=== PATIENT | female | born 1950 | race Caucasian/White ===

== ENCOUNTER 2018-05-14 09:25 | Outpatient (CLI) | payer MEDICARE, OTHER, SELFPAY ==
[2018-05-14 10:37] LABS: HGB 13.9 g/dL (12.0-15.5)
[2018-05-14 12:09] LABS: Ferritin 114 ng/mL (8-388); Potassium 3.5 mmol/L (3.5-5.1)
== END 2018-05-14 09:45 ==
PROVIDERS: PCP Family Medicine; Visit Provider Family Medicine
DX: E87.6 Hypokalemia (principal); E83.10 Disorder of iron metabolism, unspecified; E83.119 Hemochromatosis, unspecified
CPT/HCPCS: 36415; 82728; 84132; 85014; 85018

== ENCOUNTER 2018-07-02 11:09 | Outpatient (CLI) | payer MEDICARE, OTHER, SELFPAY ==
[2018-07-02 13:19] LABS: HCT 40.5 % (36.0-46.0); Mean Corp. HGB Concentration 34.6 g/dL (32.0-36.0); Mean Corpuscular Hemoglobin 33.8 pg (27.0-33.0); Mean Corpuscular Volume 97.8 fL (80-95); Mean Platelet Volume 10.6 fL (8.0-11.0); Platelet Count 226 x1000/uL (130-400); RBC 4.14 m/cumm (4.00-5.20); RBC Distribution Width 12.7 % (11.7-14.6)
[2018-07-02 13:37] LABS: ALT 26 U/L (12-78); AST 16 U/L (15-37); Alkaline Phosphatase 50 U/L (46-116); Anion Gap 6.4 mmol/L (3-11); BUN 14 mg/dL (7-18); Bilirubin, Total 0.4 mg/dL (0.2-1.0); CO2 31.6 mmol/L (21.0-32.0); CREATININE 0.63 mg/dL (0.55-1.02); Calcium 9.1 mg/dL (8.5-10.1); Chloride 101 mmol/L (98-107); Glucose 68 mg/dL (70-100); Potassium 3.8 mmol/L (3.5-5.1); Sodium 139 mmol/L (136-145); TSH (W/Ref FT4) 1.18 uIU/mL (0.358-3.74); Total Protein 7.4 g/dL (6.4-8.2)
== END 2018-07-02 11:29 ==
PROVIDERS: PCP Family Medicine; Visit Provider Family Medicine
DX: I10 Essential (primary) hypertension (principal); N95.0 Postmenopausal bleeding; R53.83 Other fatigue; Z01.818 Encounter for other preprocedural examination
CPT/HCPCS: 36415; 80053; 85027; 83735; 84443

== ENCOUNTER 2018-07-23 00:41 | Outpatient (CLI) | payer MEDICARE, OTHER, SELFPAY ==
--- NOTE | 2018-07-23 10:30 | DI.MAMMO_ITS ---
SYMPTOMS/DIAGNOSIS: SCREENING, Z12.31 MAMMOGRAM: Mammograms were interpreted according to the usual protocol including computer analysis with CAD system, tomosynthesis and C view imaging. Comparison is made with exams from 2013 through 2018. The breasts are composed of heterogeneously dense fibroglandular tissue, breast density Category C. No suspicious masses or suspicious microcalcifications are seen. There has been no significant change. IMPRESSION: Category I C, negative mammogram. Yearly screening mammography is recommended. [facility] ASSESSMENT OF FINDINGS: Negative. Category 1. Patient will receive a letter notifying them of these results. Bi-RADS category C. The breasts are heterogeneously dense, which may obscure small masses.
== END 2018-07-23 01:01 ==
PROVIDERS: PCP Family Medicine; Visit Provider Family Medicine
DX: Z12.31 Encounter for screening mammogram for malignant neoplasm of breast (principal)
CPT/HCPCS: 77063; 77067

== ENCOUNTER 2018-09-12 08:23 | Outpatient (CLI) | payer MEDICARE, OTHER, SELFPAY ==
[2018-09-12] MEDS: Gadoterate meglumine 20 ML VIAL 11 ML IVP (10:14)
--- NOTE | 2018-09-12 10:36 | DI.MRI_ITS ---
SYMPTOMS/DIAGNOSIS: THORACIC BACK PAIN, M54.6, LOWER EXTREMITY PAIN, M79.606, RADIATING PAIN, H/O THORACIC DISCECTOMY MRI OF THE THORACIC SPINE: Pre and post contrast MRI of the thoracic spine was performed. Comparison examinations 01/10/18 and 01/19/18. There is normal signal in the spinal cord. There is a small right paracentral disc herniation at T 7 - 8 which is unchanged. No significant central spinal canal stenosis. No neural foraminal stenosis is seen. The disc herniation at T 11 - 12 is no longer visualized. There is a very small left paracentral disc protrusion at T 11 - 12. The remaining disc levels show no evidence of central spinal canal or neural foraminal stenosis. The marrow signal is within normal limits. IMPRESSION: 1. Resolution of the large left sided extruded disc at T 11 - 12. There is a very small residual left paraspinal disc herniation at T 11 - 12 but no nerve root compression or central spinal canal stenosis results. 2. Stable small right paracentral disc herniation at T 7 - 8.
== END 2018-09-12 08:43 ==
PROVIDERS: PCP Family Medicine; Visit Provider Neurological Surgery
DX: M54.6 Pain in thoracic spine (principal); M51.24 Other intervertebral disc displacement, thoracic region; Z98.890 Other specified postprocedural states
CPT/HCPCS: 72157

== ENCOUNTER 2018-10-10 09:03 | Outpatient (CLI) | payer MEDICARE, OTHER, SELFPAY ==
[2018-10-10 12:20] LABS: Ferritin 109 ng/mL (8-388); Potassium 3.8 mmol/L (3.5-5.1)
== END 2018-10-10 09:23 ==
PROVIDERS: PCP Family Medicine; Visit Provider Family Medicine
DX: E83.10 Disorder of iron metabolism, unspecified (principal); E83.119 Hemochromatosis, unspecified; E87.6 Hypokalemia
CPT/HCPCS: 36415; 82728; 84132

== ENCOUNTER 2018-11-02 08:09 | Outpatient (CLI) | payer MEDICARE, OTHER, SELFPAY ==
[2018-11-02 10:22] LABS: Cholesterol 258 mg/dL (50-200); HDL Cholesterol 60 mg/dL (40-60); LDL CHOLESTEROL 181 mg/dL (<100); Triglyceride 114 mg/dL (30-150)
== END 2018-11-02 08:29 ==
PROVIDERS: PCP Family Medicine; Visit Provider Internal Medicine Cardiovascular Disease
DX: I10 Essential (primary) hypertension (principal); I25.10 Atherosclerotic heart disease of native coronary artery without angina pectoris; M54.5 Low back pain; M54.6 Pain in thoracic spine; M47.814 Spondylosis without myelopathy or radiculopathy, thoracic region; M47.816 Spondylosis without myelopathy or radiculopathy, lumbar region; M53.3 Sacrococcygeal disorders, not elsewhere classified
CPT/HCPCS: 36415; 80061; 83721; 72072; 72100

== ENCOUNTER 2018-11-02 09:38 | Outpatient (CLI) | payer MEDICARE, OTHER, SELFPAY ==
--- NOTE | 2018-11-02 09:35 | DI.RAD_ITS ---
SYMPTOM/DIAGNOSIS: LOW BACK PAIN M54.5 M54.6, THORACID PAIN M54.5, M54.6 THORACIC SPINE: 11/02 Three views were obtained. There are minimal end plate hypertrophic degenerative changes throughout the thoracic region. No compression fracture. No other significant findings. LUMBOSACRAL SPINE: 11/02 Three views were obtained. The intervertebral disc spaces are fairly well maintained. There are moderate hypertrophic changes of the facet joints and vertebral end plates with prominent end plate osteophytes anteriorly particularly at L2-3 and L4-5. No compression fracture seen. No other specific bony abnormality. Slight right convex lumbar scoliosis noted. CONCLUSION: Moderate DJD lumbar spine. Mild DJD S-I joints bilaterally noted as well.
== END 2018-11-02 09:58 ==
PROVIDERS: PCP Family Medicine; Visit Provider Family Medicine
DX: M54.5 Low back pain (principal); M54.6 Pain in thoracic spine; M47.814 Spondylosis without myelopathy or radiculopathy, thoracic region; M47.816 Spondylosis without myelopathy or radiculopathy, lumbar region; M53.3 Sacrococcygeal disorders, not elsewhere classified
CPT/HCPCS: 72072; 72100

== ENCOUNTER → 2018-11-09 13:46 | Outpatient (BNVA) | payer MEDICARE, OTHER, SELFPAY | PROVIDERS: PCP Family Medicine; Visit Provider Internal Medicine Cardiovascular Disease | DX: I25.10 Atherosclerotic heart disease of native coronary artery without angina pectoris (principal); Z95.818 Presence of other cardiac implants and grafts; E78.5 Hyperlipidemia, unspecified; I10 Essential (primary) hypertension | CPT/HCPCS: 99213 ==

== ENCOUNTER 2019-01-21 09:49 | Outpatient (CLI) | payer MEDICARE, OTHER, SELFPAY ==
[2019-01-21 13:26] LABS: Ferritin 114 ng/mL (8-388); Potassium 4.1 mmol/L (3.5-5.1)
== END 2019-01-21 10:09 ==
PROVIDERS: PCP Family Medicine; Visit Provider Family Medicine
DX: E87.6 Hypokalemia (principal); E83.10 Disorder of iron metabolism, unspecified; E83.119 Hemochromatosis, unspecified
CPT/HCPCS: 36415; 82728; 84132

== ENCOUNTER 2019-05-08 07:19 | Outpatient (CLI) | payer MEDICARE, OTHER, SELFPAY ==
[2019-05-08 09:45] LABS: Anion Gap 9.4 mmol/L (3-11); BUN 17 mg/dL (7-18); CO2 29.6 mmol/L (21.0-32.0); CREATININE 0.83 mg/dL (0.55-1.02); Calcium 9.4 mg/dL (8.5-10.1); Calculated LDL 97 mg/dL; Chloride 99 mmol/L (98-107); Cholesterol 177 mg/dL (50-200); Glucose 83 mg/dL (70-100); HDL Cholesterol 62 mg/dL (40-60); Sodium 138 mmol/L (136-145); Triglyceride 93 mg/dL (30-150)
[2019-05-08 09:59] LABS: Ferritin 101 ng/mL (8-388)
== END 2019-05-08 07:39 ==
PROVIDERS: PCP Family Medicine; Visit Provider Internal Medicine Cardiovascular Disease
DX: E78.5 Hyperlipidemia, unspecified (principal); E83.10 Disorder of iron metabolism, unspecified; E87.6 Hypokalemia; E83.119 Hemochromatosis, unspecified
CPT/HCPCS: 36415; 80048; 80061; 82728

== ENCOUNTER → 2019-05-22 09:40 | Outpatient (BNVA) | payer MEDICARE, OTHER, SELFPAY | PROVIDERS: PCP Family Medicine; Referring Provider Family Medicine; Visit Provider Internal Medicine Cardiovascular Disease | DX: I25.10 Atherosclerotic heart disease of native coronary artery without angina pectoris (principal); E78.5 Hyperlipidemia, unspecified; I10 Essential (primary) hypertension; I34.0 Nonrheumatic mitral (valve) insufficiency | CPT/HCPCS: 99204; 99215 ==

== ENCOUNTER 2019-07-09 09:51 | Outpatient (CLI) | payer MEDICARE, OTHER, SELFPAY ==
[2019-07-09 13:07] LABS: HCT 39.6 % (36.0-46.0); HGB 13.6 g/dL (12.0-15.5)
[2019-07-09 13:33] LABS: Ferritin 103 ng/mL (8-252)
[2019-07-09 13:34] LABS: Hemoglobin A1C 5.5 % (3.8-5.6)
[2019-07-09 13:49] LABS: Potassium 3.8 mmol/L (3.5-5.1); TSH (W/Ref FT4) 1.65 uIU/mL (0.36-3.74); Vitamin B12 467 pg/mL (193-986)
== END 2019-07-09 10:11 ==
PROVIDERS: PCP Family Medicine; Visit Provider Family Medicine
DX: E11.9 Type 2 diabetes mellitus without complications (principal); I10 Essential (primary) hypertension; D64.9 Anemia, unspecified; G62.9 Polyneuropathy, unspecified; E87.6 Hypokalemia; E83.10 Disorder of iron metabolism, unspecified; E83.119 Hemochromatosis, unspecified
CPT/HCPCS: 36415; 82607; 82728; 83036; 84132; 84443; 85014; 85018

== ENCOUNTER 2019-08-29 01:43 | Outpatient (CLI) | payer MEDICARE, OTHER, SELFPAY ==
--- NOTE | 2019-08-29 09:45 | DI.MAMMO_ITS ---
EXAM: MG MAMMO SCREENING CLINICAL HISTORY: screening, Z12.39 TECHNIQUE: Bilateral full field digital CC and MLO mammographic images were obtained with 3D tomosyn thesis and utilizing computer aided detection (CAD). COMPARISON: Available for comparison. FINDINGS: Masses/Architectural Distortion: None seen. Microcalcifications: No suspicious pleomorphic-type are seen. Skin Thickening/Nipple Retraction: None. IMPRESSION: 1. No significant interval change with no specific features of malignancy noted. 2. Unless there is more urgent need, screening mammography is recommended, as per [place] [employer] guidelines. ACR BI-RAD Category- 1 Negative Breast Density - Category C - Heterogeneously dense The mammogram demonstrates the patient's breast tissue is dense. Dense breast tissue is very common a nd is not abnormal but dense breast tissue can make it harder to find cancer on a mammogram. Also, de nse breast tissue may increase their breast cancer risk. This information about the result of the [facility] mogram report was provided to the patient to raise their awareness. Use this report when you speak wi th the patient about their risks for breast cancer, which includes their family history. At that time , you may recommend for more screening tests (Ultrasound or MRI) as they might be useful based on the ir risk. A negative radiographic report should not delay biopsy if a dominant or clinically suspicious mass is present. Up to ten percent of cancers are not identified on mammography. A negative report may reinforce clinical impression. Adenosis and dense breasts may obscure an underlying neoplasm. False positive reports average 6 to 10%. Patient will receive a letter notifying them of these results.
== END 2019-08-29 02:03 ==
PROVIDERS: PCP Family Medicine; Visit Provider Family Medicine
DX: Z12.31 Encounter for screening mammogram for malignant neoplasm of breast (principal)
CPT/HCPCS: 77063; 77067

== ENCOUNTER 2019-11-14 03:54 | Outpatient (CLI) | payer MEDICARE, OTHER, SELFPAY ==
[2019-11-14 09:34] LABS: HCT 40.7 % (36.0-46.0); HGB 14.1 g/dL (12.0-15.5)
[2019-11-14 09:44] LABS: Calculated LDL 95 mg/dL (<100); Cholesterol 176 mg/dL (<200); HDL Cholesterol 66 mg/dL (40-60); Triglyceride 77 mg/dL (<150)
[2019-11-14 10:26] LABS: Ferritin 146 ng/mL (8-252); Potassium 3.8 mmol/L (3.5-5.1)
== END 2019-11-14 04:14 ==
PROVIDERS: PCP Family Medicine; Visit Provider Internal Medicine Cardiovascular Disease
DX: E78.5 Hyperlipidemia, unspecified (principal); E87.6 Hypokalemia; E83.19 Other disorders of iron metabolism
CPT/HCPCS: 36415; 80061; 82728; 84132; 85014; 85018

== ENCOUNTER → 2019-11-19 12:08 | Outpatient (BNVA) | payer MEDICARE, OTHER, SELFPAY | PROVIDERS: PCP Family Medicine; Referring Provider Family Medicine; Visit Provider Internal Medicine Cardiovascular Disease | DX: I25.10 Atherosclerotic heart disease of native coronary artery without angina pectoris (principal); I10 Essential (primary) hypertension; I34.0 Nonrheumatic mitral (valve) insufficiency; E78.5 Hyperlipidemia, unspecified | CPT/HCPCS: 99214; 99442 ==

== ENCOUNTER 2019-12-09 14:15 | Outpatient (CLI) | payer MEDICARE, OTHER, SELFPAY ==
--- NOTE | 2019-12-09 14:30 | DI.RAD_ITS ---
EXAM: XR KNEE LT 4V AP,LAT,JW,PAT CLINICAL HISTORY: left knee pain M25.562. TECHNIQUE: 2D digital imaging was performed. COMPARISON: No exams were available for comparison FINDINGS: BONES: No acute fracture is present. No bony destructive lesion is seen. JOINTS: The knee is normally aligned. A small joint effusion is seen. There is heavy chondrocalcinosi s of the femoral tibial joint space cartilage and menisci. Femoral tibial joint spaces are well main tained. There is minimal periarticular spurring. The patellar view is suboptimal. SOFT TISSUE: Normal. IMPRESSION: Severe chondrocalcinosis. DATA REPOSITORY: RADIATION DOSE DELIVERED:
== END 2019-12-09 14:35 ==
PROVIDERS: PCP Family Medicine; Visit Provider Family Medicine
DX: M25.562 Pain in left knee (principal); M25.462 Effusion, left knee; M11.262 Other chondrocalcinosis, left knee
CPT/HCPCS: 73564

== ENCOUNTER 2019-12-09 14:47 | Outpatient (CLI) | payer MEDICARE, OTHER, SELFPAY ==
[2019-12-09 15:40] LABS: Abs Immature Grans 0.02 k/cumm (0.0-0.09); Absolute Basophil Count 0.03 k/cumm (0.0-0.2); Absolute Eosinophil Count 0.09 k/cumm (0.0-0.7); Absolute Lymphocyte Count 2.22 k/cumm (1.2-3.4); Absolute Monocyte Count 1.26 k/cumm (0.11-0.7); Absolute Neutrophil Count 6.64 k/cumm (1.2-6.7); Basophils % 0.3; Eosinophils % 0.9; HGB 14.9 g/dL (12.0-15.5); Immature Grans % 0.2 %; Lymphocytes % 21.6; Mean Corp. HGB Concentration 34.7 g/dL (32.0-36.0); Mean Corpuscular Hemoglobin 34.1 pg (27.0-33.0); Mean Corpuscular Volume 98.4 fL (80-95); Mean Platelet Volume 10.2 fL (8.0-11.0); Monocytes % 12.3; Neutrophils % 64.7; Platelet Count 243 x1000/uL (130-400); RBC 4.37 m/cumm (4.00-5.20); White Blood Cell Count 10.26 k/cumm (4.4-10.8)
[2019-12-09 16:20] LABS: D-Dimer 276 ng/mlFEU (<500)
[2019-12-09 16:27] LABS: C-Reactive Protein 1.25 mg/dL (0.0-0.3)
== END 2019-12-09 15:07 ==
PROVIDERS: PCP Family Medicine; Visit Provider Nurse Practitioner Family
DX: M25.562 Pain in left knee (principal)
CPT/HCPCS: 36415; 73564; 85025; 85379; 86140

== ENCOUNTER 2020-04-08 02:18 | Outpatient (CLI) | payer MEDICARE, OTHER, SELFPAY ==
[2020-04-08 10:49] LABS: HCT 39.2 % (36.0-46.0); HGB 13.5 g/dL (11.2-15.7)
[2020-04-08 11:40] LABS: Ferritin 185 ng/mL (8-252); Potassium 3.7 mmol/L (3.5-5.1)
== END 2020-04-08 02:38 ==
PROVIDERS: PCP Family Medicine; Visit Provider Family Medicine
DX: E87.6 Hypokalemia (principal); E83.10 Disorder of iron metabolism, unspecified; E83.119 Hemochromatosis, unspecified
CPT/HCPCS: 36415; 82728; 84132; 85014; 85018

== ENCOUNTER 2020-07-21 03:52 | Outpatient (CLI) | payer MEDICARE, OTHER, SELFPAY ==
[2020-07-21 11:32] LABS: HCT 39.9 % (36.0-46.0); HGB 14.2 g/dL (11.2-15.7)
[2020-07-21 12:33] LABS: Ferritin 127 ng/mL (8-252); Potassium 3.9 mmol/L (3.5-5.1)
== END 2020-07-21 04:12 ==
PROVIDERS: PCP Family Medicine; Visit Provider Family Medicine
DX: E83.10 Disorder of iron metabolism, unspecified (principal)
CPT/HCPCS: 36415; 82728; 84132; 85014; 85018

== ENCOUNTER 2020-08-31 01:31 | Outpatient (CLI) | payer MEDICARE, OTHER, SELFPAY ==
--- NOTE | 2020-08-31 06:30 | DI.MAMMO_ITS ---
EXAM: MAMMO SCREENING CLINICAL HISTORY: screening,Z12.39 TECHNIQUE: Mammograms were interpreted according to the usual protocol including computer analysis w [employer] CAD system, tomosynthesis and C-view imaging. COMPARISON: 2010 through 2019 FINDINGS: The breasts are composed of heterogeneously dense fibroglandular densities, Breast Density category C . No suspicious masses or suspicious microcalcifications are seen. No skin thickening or abnormal axillary lymph nodes are seen. There has been no significant change from prior exams. IMPRESSION: BI-RADS Category 1, Negative mammogram. Yearly screening mammography is recommended. Breast Density Category C, heterogeneously Dense. The mammogram demonstrates the patient's breast tissue is dense. Dense breast tissue is very common a nd is not abnormal but dense breast tissue can make it harder to find cancer on a mammogram. Also, de nse breast tissue may increase breast cancer risk. This information about the result of the mammogram report was provided to the patient to raise their awareness. Use this report when you speak with the patient about their risks for breast cancer, which includes their family history. At that time, you may recommend additional screening tests (Ultrasound or MRI) as they might be useful based on their r isk. A negative radiographic report should not delay biopsy if a dominant or clinically suspicious mass is present. Up to ten percent of cancers are not identified on mammography. A negative report may reinforce clinical impression. Adenosis and dense breasts may obscure an underlying neoplasm. False positive reports average 6 to 10%.
== END 2020-08-31 01:51 ==
PROVIDERS: PCP Family Medicine; Visit Provider Family Medicine
DX: Z12.31 Encounter for screening mammogram for malignant neoplasm of breast (principal)
CPT/HCPCS: 77063; 77067

== ENCOUNTER 2020-09-28 01:47 | Outpatient (CLI) | payer MEDICARE, OTHER, SELFPAY ==
--- NOTE | 2020-09-28 07:30 | DI.US_ITS ---
EXAM: US BREAST LT COMPLETE CLINICAL HISTORY: INCONCLUSIVE MAMMO, R92.2, DENSE BREAST TISSUE TECHNIQUE: Ultrasound right breast performed using standard protocol. COMPARISON: MG MAMMO SCREENING from 08/31/2020 FINDINGS: No solid or cystic masses, hypoechoic foci, areas of abnormal shadowing, or areas of skin thickening. IMPRESSION: No sonographically suspicious finding. BI-RADS Category 1 - Negative DATA REPOSITORY:
--- NOTE | 2020-09-28 07:30 | DI.US_ITS ---
EXAM: US BREAST RT COMPLETE CLINICAL HISTORY: INCONCLUSIVE MAMMOGRAM, R92.2, DENSE BREAST TISSUE TECHNIQUE: Ultrasound right breast performed using standard protocol. COMPARISON: MG MAMMO SCREENING from 08/31/2020 FINDINGS: No solid or cystic masses, hypoechoic foci, areas of abnormal shadowing, or areas of skin thickening. IMPRESSION: No sonographically suspicious finding. BI-RADS Category 1 - Negative DATA REPOSITORY:
== END 2020-09-28 02:07 ==
PROVIDERS: PCP Family Medicine; Visit Provider Family Medicine
DX: R92.2 Inconclusive mammogram (principal); N64.89 Other specified disorders of breast
CPT/HCPCS: 76642

== ENCOUNTER 2020-11-10 01:27 | Outpatient (CLI) | payer MEDICARE, OTHER, SELFPAY ==
--- NOTE | 2020-11-10 07:15 | DI.US_ITS ---
APPROVED REPORT EXAM: Comprehensive 2D, Doppler, and color-flow Echocardiogram Patient Location: Out-Patient Trumpet Teacher: Valencia Holbrook RDCS (AE) Indications: Mitral Regurgitation, CAD Other Information Study Quality: Good Conclusion Left Ventricle : The left ventricle is normal size. The left ventricular systolic function is normal. The left ventricular ejection fraction is within the normal range. There is normal left ventricular wall thickness. There is normal LV segmental wall motion. The left ventricular diastolic function is normal. LVEF is 60-65%. Right Ventricle : The right ventricle is normal size. The right ventricular systolic function is norm al. The RVSP is 21.7mmHg. Atria : The left atrium size is normal. The right atrium size is normal. Mitral Valve : Mild mitral annular calcification. Mild mitral regurgitation. No evidence of mitral va lve stenosis. Great Vessels : The aortic root is normal in size. The ascending aorta is mildly dilated. Aortic arch is normal in caliber. IVC is normal in size and collapses >50% with inspiration. Wall motion Left Ventricle The left ventricle is normal size. The left ventricular systolic function is normal. The left ventric ular ejection fraction is within the normal range. There is normal left ventricular wall thickness. T here is normal LV segmental wall motion. The left ventricular diastolic function is normal. There is no ventricular septal defect visualized. LVEF is 60-65%. Right Ventricle The right ventricle is normal size. The right ventricular systolic function is normal. The RVSP is 21 .7mmHg. Atria The left atrium size is normal. The right atrium size is normal. The interatrial septum is intact wit h no evidence for an atrial septal defect. Aortic Valve The aortic valve is normal in structure. Aortic valve is trileaflet. There is no aortic valvular sten osis. No aortic regurgitation is present. Mitral Valve Mild mitral annular calcification. No evidence of mitral valve stenosis. Mild mitral regurgitation. Tricuspid Valve The tricuspid valve is normal in structure. There is no tricuspid valve stenosis. Trace tricuspid reg urgitation. Pulmonic Valve The pulmonary valve is normal in structure. There is no pulmonic valvular stenosis. There is no pulmo dax valvular regurgitation. Great Vessels The aortic root is normal in size. The ascending aorta is mildly dilated. Aortic arch is normal in ca liber. IVC is normal in size and collapses >50% with inspiration. Pericardium There is no pericardial effusion. 2D Dimensions IVSD d PLAX 0.78 cm F: 0.6-1.0 LV Vol A2C d MOD 65.4 mL LVPW d PLAX 0.79 cm F: 0.6 - 1.0 LV Vol A4C d MOD 60.4 mL LVID d PLAX 4.12 cm F: 3.8 - 5.2 LA vol/ BSA A2C s A-L 20.8 mL/m2 LVDs 2.55 cm F: 2.2 - 3.5 LA vol/ BSA A4C s A-L 16.8 mL/m2 Ao Root d 2.51 cm F: 2.7 - 3.3 LA Vol/ BSA Biplane s A-L 18.9 mL/m2 RA Area A4C 8.40 cm2 LA Area A4C s MOD 12.18 cm2 RA Vol/ BSA A4C s A-L 9.2 mL/m2 LA Area A2C s MOD 13.41 cm2 Ao Asc Diam d 3.48 cm F: 2.3 - 3.1 LV EF A4C MOD 69.6 % LV EF Teichholz 68.0 % LV EF A2C MOD 64.4 % LVEF (Hilliard's) 64.07 % F: 54 - 74 LV EF Biplane MOD 64.1 % LV Volume 52.03 mL F: 46 - 106 SV 40.45 mL LV Volume Index 33.78 mL/m2 F: 29 - 61 SV Index 26.23 mL/m2 LV Vol Biplane MOD 63.1 mL FS 37.50 % M-Mode TAPSE 2.18 cm (M/F) >1.7 LV Diastology MV E' medial 0.067 (>0.07 m/s) E/A Ratio 0.7 LV E/e MED 11.55 (<14) MV E Vmax 0.78 (0.4-1.3 m/s) MV E' lateral 0.085 (>0.1 m/s) MV A Vmax 1.05 (0.4-1.3 m/s) LV E/e LAT 9.15 (<14) MV E/A Ratio 0.72 MV E/E' medial 11.56 MV E/E' lateral 9.17 Aortic Valve LVOT Area 2.96 cm2 AoV Area Vmax 2.42 cm2 LVOT Vmax 1.27 m/s AoV Area/ BSA (Vmax) 1.57 cm2/m2 LVOT Mean Ralph. 0.95 m/s THOMAS Mean Ralph. 2.70 cm2 LVOT Peak Grad 6.5 mmHg THOMAS Mean Ralph. Index 1.75 cm2/m2 LVOT Mean Grad 4.0 mmHg LVOT VTI 0.245 m LVOT Diam s 1.90 cm AoV Vmax 1.55 m/s Velocity Ratio 0.81 AoV Mean Ralph. 1.04 m/s AoV Peak Grad 9.7 mmHg LVOT SV 72.30 mL AoV Mean Grad 4.9 mmHg AoV VTI 0.316 m AoV Area VTI 2.29 cm2 AoV Area/ BSA (VTI) 1.48 cm/m2 Mitral Valve MV DT 233 (160-240 msec) MR Vmax 3.98 m/s MV PHT 68 msec MR VTI 1.229 m MV Area PHT 3.25 cm2 MR Peak Grad 63.2 mmHg MV VTI 0.287 m MR Mean Grad 58.1 mmHg MV VTI Annulus 0.298 m MR PISA Radius 0.41 cm MV Area VTI 2.62 (4.0-6.0 cm2) MR EROA 0.09 cm2 MR Aliasing Velocity 0.35 m/s MR PISA 1.06 cm2 Pulmonary Valve PV Vmax 0.89 (0.5-1.5 m/s) RVOT Peak Gr. 1.71 mmHg PV Peak Grad 3.2 mmHg RVOT Mean Gr. 0.85 mmHg PV Mean Grad 1.9 mmHg RVOT VTI 0.140 m PV VTI 0.165 m RVOT Vmax 0.65 m/s Tricuspid Valve TR Peak Grad 18.7 mmHg TR Vmax 2.16 m/s RA Pressure 3.00 mmHg RVSP (TR) 21.7 mmHg
== END 2020-11-10 01:47 ==
PROVIDERS: PCP Family Medicine; Visit Provider Internal Medicine Cardiovascular Disease
DX: I25.10 Atherosclerotic heart disease of native coronary artery without angina pectoris (principal); I34.0 Nonrheumatic mitral (valve) insufficiency; I77.810 Thoracic aortic ectasia
CPT/HCPCS: 93306

== ENCOUNTER 2020-11-12 03:13 | Outpatient (CLI) | payer MEDICARE, OTHER, SELFPAY ==
[2020-11-12 09:05] LABS: HCT 39.9 % (36.0-46.0); HGB 14.1 g/dL (11.2-15.7)
[2020-11-12 09:17] LABS: INR 1.1 (0.9-1.1); Prothrombin Time 10.6 sec (9.3-11.0)
[2020-11-12 09:48] LABS: Calculated LDL 89 mg/dL (<100); Cholesterol 159 mg/dL (<200); HDL Cholesterol 54 mg/dL (40-60); Triglyceride 84 mg/dL (<150)
[2020-11-12 10:02] LABS: Ferritin 137 ng/mL (8-252); Potassium 3.9 mmol/L (3.5-5.1)
== END 2020-11-12 03:14 | disposition home or self-care (01) ==
LOC: LBO 03:13
PROVIDERS: PCP Family Medicine; Visit Provider Internal Medicine Cardiovascular Disease
DX: E87.6 Hypokalemia (principal); E83.10 Disorder of iron metabolism, unspecified; E83.119 Hemochromatosis, unspecified; Z79.01 Long term (current) use of anticoagulants; I25.10 Atherosclerotic heart disease of native coronary artery without angina pectoris
CPT/HCPCS: 36415; 80061; 82728; 84132; 85014; 85018; 85610

== ENCOUNTER → 2020-11-20 10:03 | Outpatient (BNVA) | payer MEDICARE, OTHER, SELFPAY | PROVIDERS: PCP Family Medicine; Referring Provider Family Medicine; Visit Provider Internal Medicine Cardiovascular Disease | DX: I25.10 Atherosclerotic heart disease of native coronary artery without angina pectoris (principal); I10 Essential (primary) hypertension; I34.0 Nonrheumatic mitral (valve) insufficiency; E78.5 Hyperlipidemia, unspecified; Z79.899 Other long term (current) drug therapy; Z95.818 Presence of other cardiac implants and grafts | CPT/HCPCS: 99214 ==

== ENCOUNTER 2021-04-12 13:06 | Outpatient (CLI) | payer MEDICARE, OTHER, SELFPAY ==
[2021-04-12 10:25] LABS: HCT 40.5 % (36.0-46.0); HGB 13.9 g/dL (11.2-15.7)
[2021-04-12 10:38] LABS: INR 1.1 (0.9-1.1); Prothrombin Time 10.8 sec (9.3-11.0)
[2021-04-12 11:30] LABS: Ferritin 172 ng/mL (8-252); Potassium 4.1 mmol/L (3.5-5.1)
== END 2021-04-12 13:07 | disposition home or self-care (01) ==
LOC: LOS 04-13 13:06
PROVIDERS: PCP Family Medicine; Visit Provider Family Medicine
DX: E83.10 Disorder of iron metabolism, unspecified (principal); E87.6 Hypokalemia; I25.10 Atherosclerotic heart disease of native coronary artery without angina pectoris; Z79.01 Long term (current) use of anticoagulants
CPT/HCPCS: 36415; 82728; 84132; 85014; 85018; 85610

== ENCOUNTER 2021-06-02 13:11 | Outpatient (REF) | payer MEDICARE, OTHER, SELFPAY ==
[2021-06-04 14:16] LABS: COVID-19 RT-PCR UVMMC Result Negative (Negative)
== END 2021-06-02 13:12 | disposition home or self-care (01) ==
LOC: LBN 13:11
PROVIDERS: PCP Family Medicine; Visit Provider Nurse Practitioner Family
DX: Z20.822 Contact with and (suspected) exposure to COVID-19 (principal)
CPT/HCPCS: U0003

== ENCOUNTER 2021-09-03 04:05 | Outpatient (CLI) | payer MEDICARE, SELFPAY ==
[2021-09-03 10:53] LABS: HGB 13.9 g/dL (11.2-15.7); MCH 34.2 pg (27.0-33.0); MCHC 34.8 % (32.0-36.0); MCV 98.5 fL (80-95); MPV 10.1 fL (8.0-11.0); Platelet Count 214 10^3/uL (130-400); RBC 4.06 10^6/uL (3.93-5.22); RDW 11.8 % (11.7-14.6); RDW-SD 42.7 fL; WBC 5.23 10^3/uL (4.4-10.8)
[2021-09-03 11:44] LABS: ALT 23 U/L (14-59); AST 19 U/L (15-37); Albumin 3.9 g/dL (3.4-5.0); Alkaline Phosphatase 54 U/L (46-116); Anion Gap 11.5 mmol/L (3-11); BUN 23 mg/dL (7-18); Bilirubin, Total 0.5 mg/dL (0.2-1.0); CO2 26.5 mmol/L (21.0-32.0); CREATININE 0.7 mg/dL (0.55-1.02); Chloride 98 mmol/L (98-107); Ferritin 141 ng/mL (8-252); Glucose 80 mg/dL (74-106); Potassium 3.7 mmol/L (3.5-5.1); Sodium 136 mmol/L (136-145)
[2021-09-03 11:48] LABS: Calcium 8.9 mg/dL (8.5-10.1)
== END 2021-09-03 04:06 | disposition home or self-care (01) ==
LOC: LBO 04:06
PROVIDERS: PCP Family Medicine; Visit Provider Family Medicine
DX: D64.9 Anemia, unspecified (principal); E83.119 Hemochromatosis, unspecified; R31.9 Hematuria, unspecified; I25.10 Atherosclerotic heart disease of native coronary artery without angina pectoris
CPT/HCPCS: 36415; 80053; 85027; 82728

== ENCOUNTER 2021-09-30 00:39 | Outpatient (CLI) | payer MEDICARE, SELFPAY ==
--- NOTE | 2021-09-30 07:45 | DI.MAMMO_ITS ---
Exam(s) MAMMO SCREENING EXAM: MAMMO SCREENING CLINICAL HISTORY: screening,Z12.39 TECHNIQUE: Bilateral full field digital CC and MLO mammographic images were obtained with 3D tomosyn thesis and utilizing computer aided detection (CAD). COMPARISON: Available for comparison. FINDINGS: Masses/Architectural Distortion: None seen. Microcalcifications: No suspicious pleomorphic-type are seen. Skin Thickening/Nipple Retraction: None. IMPRESSION: 1. No significant interval change with no specific features of malignancy noted. 2. Unless there is more urgent need, screening mammography is recommended, as per [employer] guidelines. BI-RADS Category 1 - Negative Breast Density - Category C - Heterogeneously dense Breast density category C or D implies that the patient has dense breast tissue. Dense breast tissue is very common and is not abnormal but dense breast tissue can make it harder to find cancer on a ma mmogram. Also, dense breast tissue may increase their breast cancer risk. This information about the result of the mammogram report was provided to the patient to raise their awareness. Use this report when you speak with the patient about their risks for breast cancer, which includes their family hist ory. At that time, you may recommend for more screening tests (Ultrasound or MRI) as they might be us eful based on their risk. A negative radiographic report should not delay biopsy if a dominant or clinically suspicious mass is present. Up to ten percent of cancers are not identified on mammography. A negative report may reinforce clinical impression. Adenosis and dense breasts may obscure an underlying neoplasm. False positive reports average 6 to 10%. Patient will receive a letter notifying them of these results.
== END 2021-09-30 00:59 ==
PROVIDERS: PCP Family Medicine; Visit Provider Family Medicine
DX: Z12.31 Encounter for screening mammogram for malignant neoplasm of breast (principal)
CPT/HCPCS: 77063; 77067

== ENCOUNTER → 2021-11-23 10:43 | Outpatient (BNVA) | payer MEDICARE, SELFPAY | PROVIDERS: PCP Family Medicine; Referring Provider Family Medicine; Visit Provider Internal Medicine Cardiovascular Disease | DX: I25.10 Atherosclerotic heart disease of native coronary artery without angina pectoris (principal) | CPT/HCPCS: 99213 ==

== ENCOUNTER 2022-02-22 03:32 | Outpatient (CLI) | payer MEDICARE, SELFPAY ==
[2022-02-22 11:49] LABS: HGB 13.4 g/dL (11.2-15.7)
[2022-02-22 12:12] LABS: Prothrombin Time 10.1 sec (9.3-11.0)
[2022-02-22 12:21] LABS: Ferritin 250 ng/mL (8-252); Potassium 3.7 mmol/L (3.5-5.1)
== END 2022-02-22 03:33 | disposition home or self-care (01) ==
LOC: LBO 03:32
PROVIDERS: PCP Family Medicine; Visit Provider Family Medicine
DX: E83.10 Disorder of iron metabolism, unspecified (principal); E87.6 Hypokalemia; E83.119 Hemochromatosis, unspecified
CPT/HCPCS: 36415; 82728; 84132; 85014; 85018; 85610

== ENCOUNTER 2022-07-08 01:37 | Outpatient (CLI) | payer MEDICARE, SELFPAY ==
[2022-07-08 12:22] LABS: HCT 42.9 % (36.0-46.0); HGB 14.9 g/dL (11.2-15.7)
[2022-07-08 13:16] LABS: Ferritin 94 ng/mL (8-252); Potassium 3.4 mmol/L (3.5-5.1)
== END 2022-07-08 01:38 | disposition home or self-care (01) ==
PROVIDERS: PCP Family Medicine; Visit Provider Family Medicine
DX: E83.10 Disorder of iron metabolism, unspecified (principal); E87.6 Hypokalemia; E83.119 Hemochromatosis, unspecified; Z51.81 Encounter for therapeutic drug level monitoring
CPT/HCPCS: 36415; 82728; 84132; 85014; 85018; 85610

== ENCOUNTER 2022-11-22 08:00 | Outpatient (CLI) | payer MEDICARE, SELFPAY ==
--- NOTE | 2022-11-22 08:00 | RT.EKG_ITS ---
APPROVED REPORT Exam: Resting ECG Reason for Exam: CAD Patient Location: O HR:79 bpm ECG Measurements Heart Rate 79 AXIS TX 148 P 32 QRSd 88 QRS -21 QT 371 T 0 QTc 426 Conclusion Sinus rhythm...normal P axis, V-rate 50- 99 Low voltage, precordial leads...precordial leads <1.0mV Otherwise normal ECG
== END 2022-11-22 08:01 | disposition home or self-care (01) ==
LOC: DI.CARD 08:02
PROVIDERS: PCP Family Medicine; Visit Provider Internal Medicine Cardiovascular Disease
DX: I25.10 Atherosclerotic heart disease of native coronary artery without angina pectoris (principal)
CPT/HCPCS: 93010

== ENCOUNTER → 2022-11-22 10:50 | Outpatient (BNVA) | payer MEDICARE, SELFPAY | PROVIDERS: PCP Family Medicine; Visit Provider Internal Medicine Cardiovascular Disease | DX: E83.119 Hemochromatosis, unspecified (principal); I25.10 Atherosclerotic heart disease of native coronary artery without angina pectoris | CPT/HCPCS: 93005; 99213 ==

== ENCOUNTER 2022-11-22 12:28 | Outpatient (CLI) | payer MEDICARE, SELFPAY ==
[2022-11-22 11:53] LABS: HCT 40.2 % (36.0-46.0); HGB 14.2 g/dL (11.2-15.7)
[2022-11-22 12:53] LABS: Ferritin 115 ng/mL (8-252); Potassium 3.5 mmol/L (3.5-5.1)
== END 2022-11-22 12:29 | disposition home or self-care (01) ==
LOC: LBO 12:29
PROVIDERS: PCP Family Medicine; Visit Provider Family Medicine
DX: E83.10 Disorder of iron metabolism, unspecified (principal); E87.6 Hypokalemia
CPT/HCPCS: 36415; 82728; 84132; 85014; 85018

== ENCOUNTER 2022-11-25 00:08 | Outpatient (CLI) | payer MEDICARE, SELFPAY ==
--- NOTE | 2022-11-25 08:30 | DI.MAMMO_ITS ---
Exam(s) MAMMO SCREENING EXAM: MAMMO SCREENING CLINICAL HISTORY: screening,Z12.39 TECHNIQUE: Mammograms were interpreted according to the usual protocol including computer analysis w [employer] CAD system, tomosynthesis and C-view imaging. COMPARISON: 2012 through 2021 FINDINGS: The breasts are composed of heterogeneously dense fibroglandular densities, Breast Density category C . No suspicious masses or suspicious microcalcifications are seen. No skin thickening or abnormal axillary lymph nodes are seen. There has been no significant change from prior exams. IMPRESSION: BI-RADS Category 1, Negative mammogram. Yearly screening mammography is recommended. Breast Density Category C, heterogeneously Dense. The mammogram demonstrates the patient's breast tissue is dense. Dense breast tissue is very common a nd is not abnormal but dense breast tissue can make it harder to find cancer on a mammogram. Also, de nse breast tissue may increase breast cancer risk. This information about the result of the mammogram report was provided to the patient to raise their awareness. Use this report when you speak with the patient about their risks for breast cancer, which includes their family history. At that time, you may recommend additional screening tests (Ultrasound or MRI) as they might be useful based on their r isk. A negative radiographic report should not delay biopsy if a dominant or clinically suspicious mass is present. Up to ten percent of cancers are not identified on mammography. A negative report may reinforce clinical impression. Adenosis and dense breasts may obscure an underlying neoplasm. False positive reports average 6 to 10%.
--- NOTE | 2022-11-25 08:30 | DI.DEXA_ITS ---
Exam(s) XR DEXA BONE DENSITY W/WO STEWART EXAM: XR DEXA BONE DENSITY W/WO STEWART CLINICAL HISTORY: SCREENING FOR OSTEOPOROSIS IN POSTMENOPAUSAL WOMAN,Z78.0 TECHNIQUE: [employer] C densitometer analysis of left hip, lumbar spine and left forearm. Lat eral survey image of the thoracic and lumbar spine. COMPARISON: CR XR lumbar spine AP, LAT from 11/02/2018 DEXA scan 30 April 2009, images not availab le. FINDINGS: Lateral view of the thoracic and lumbar spine shows no evidence of compression fractures. Bone mineral density measurements of the lumbar spine correspond to a total T-score of 0.1, in the n ormal range. This represents a 13.9 percent increase from 2008. Findings could be secondary to wors ening of degenerative changes. Bone mineral density measurements of the left hip correspond to a total T-score of -1.4. The femora l neck T-score is -1.7, in the osteopenic range. This is not significantly changed from the prior e xam. The left forearm bone mineral density measurements correspond to a T-score of the distal 3rd of -1.6 , in the osteopenic range. Forearm was not analyzed on the prior exam.. IMPRESSION: Normal bone mineral density of the lumbar spine. Osteopenia of the hip and forearm.
== END 2022-11-25 00:28 ==
LOC: DI 00:08
PROVIDERS: PCP Family Medicine; Visit Provider Family Medicine
DX: Z78.0 Asymptomatic menopausal state (principal); Z12.31 Encounter for screening mammogram for malignant neoplasm of breast
CPT/HCPCS: 77063; 77067; 77080

== ENCOUNTER → 2023-02-16 01:25 | Outpatient (CLI) | payer MEDICARE, SELFPAY ==
--- NOTE | 2023-02-16 13:42 | DI.US_ITS ---
APPROVED REPORT EXAM: Comprehensive 2D, Doppler, and color-flow Echocardiogram Patient Location: Out-Patient Cooling Machine Operator: Guy Le RDCS Indications: LV function and MR, CAD, hemochromatosis, atherosclerotic heart disease Other Information Study Quality: Good Conclusion Normal left ventricular wall thickness and chamber size. Ejection fraction is 60 to 65%. Wall motio n is normal Normal right ventricular size and systolic function Both atria are normal in size Aortic valve is trileaflet without stenosis or regurgitation Normal mitral valve with mild regurgitation Estimated right ventricular systolic pressure is 16 mmHg Wall motion Left Ventricle The left ventricle is normal size. The left ventricular systolic function is normal. The left ventric ular ejection fraction is within the normal range. There is normal left ventricular wall thickness. T here is normal LV segmental wall motion. There is no ventricular septal defect visualized. LVEF is 60 -64%. Right Ventricle The right ventricle is normal size. The right ventricular systolic function is normal. The RVSP is 16 .1 mmHg. Atria The left atrium size is normal. The right atrium size is normal. The interatrial septum is intact wit h no evidence for an atrial septal defect. Aortic Valve The aortic valve is normal in structure. Aortic valve is trileaflet. There is no aortic valvular sten osis. No aortic regurgitation is present. Mitral Valve The mitral valve is normal in structure. No evidence of mitral valve stenosis. Mild mitral regurgitat ion. Tricuspid Valve The tricuspid valve is normal in structure. There is no tricuspid valve stenosis. Trace tricuspid reg urgitation. Pulmonic Valve The pulmonary valve is normal in structure. There is no pulmonic valvular stenosis. There is no pulmo dax valvular regurgitation. Great Vessels The aortic root is normal in size. The ascending aorta is normal Aortic arch is normal in caliber. IV C is normal in size and collapses >50% with inspiration. Pericardium There is no pericardial effusion. 2D Dimensions IVSD d PLAX 0.74 cm F: 0.6-1.0 LVPW d PLAX 0.61 cm F: 0.6 - 1.0 LVID d PLAX 4.16 cm F: 3.8 - 5.2 LVDs 2.80 cm F: 2.2 - 3.5 Ao Root d 2.73 cm F: 2.7 - 3.3 RA Area A4C 7.93 cm2 Ao Asc Diam d 3.34 cm F: 2.3 - 3.1 LV EF Demarichholz 61.1 % FS 32.40 % LV Diastology E/A Ratio 0.7 MV E Vmax 0.72 (0.4-1.3 m/s) MV A Vmax 1.00 (0.4-1.3 m/s) Aortic Valve LVOT Vmax 1.18 m/s AoV Area Vmax 1.81 cm2 LVOT Peak Grad 5.6 mmHg LVOT Mean Grad 2.6 mmHg LVOT Diam s 1.55 cm AoV Vmax 1.30 m/s Velocity Ratio 0.91 AoV Peak Grad 6.8 mmHg LVOT SV 49.54 mL AoV Mean Grad 3.3 mmHg AoV Area VTI 1.69 cm2 Mitral Valve MV DT 215 (160-240 msec) Pulmonary Valve PV Mean Grad 1.3 mmHg RVOT Peak Gr. 1.41 mmHg RVOT Mean Gr. 0.65 mmHg RVOT VTI 0.123 m RVOT Vmax 0.59 m/s Tricuspid Valve TR Peak Grad 13.1 mmHg TR Vmax 1.81 m/s RA Pressure 3.00 mmHg RVSP (TR) 16.1 mmHg
== END ==
PROVIDERS: PCP Family Medicine; Visit Provider Internal Medicine Cardiovascular Disease
DX: E83.119 Hemochromatosis, unspecified (principal); I25.10 Atherosclerotic heart disease of native coronary artery without angina pectoris
CPT/HCPCS: 93306

== ENCOUNTER 2023-02-16 04:15 | Outpatient (CLI) | payer MEDICARE, SELFPAY ==
[2023-02-16 13:32] LABS: HCT 40.2 % (36.0-46.0); HGB 13.9 g/dL (11.2-15.7)
[2023-02-16 15:06] LABS: Ferritin 125 ng/mL (8-252); Potassium 3.8 mmol/L (3.5-5.1)
== END 2023-02-16 04:16 | disposition home or self-care (01) ==
LOC: LBO 04:15
PROVIDERS: PCP Family Medicine; Visit Provider Family Medicine
DX: E83.10 Disorder of iron metabolism, unspecified (principal); I10 Essential (primary) hypertension; D64.9 Anemia, unspecified; E83.119 Hemochromatosis, unspecified; E87.6 Hypokalemia
CPT/HCPCS: 36415; 82728; 84132; 85014; 85018

== ENCOUNTER 2023-08-09 11:02 | Outpatient (CLI) | payer MEDICARE, SELFPAY ==
[2023-08-09 11:37] LABS: Abs Immature Grans 0.02 10^3/uL (0.0-0.06); Absolute Basophil Count 0.07 10^3/uL (0.0-0.2); Absolute Eosinophil Count 0.19 10^3/uL (0.0-0.7); Absolute Lymphocyte Count 2.53 10^3/uL (1.2-3.4); Absolute Monocyte Count 1.15 10^3/uL (0.1-0.8); Absolute Neutrophil Count 3.94 10^3/uL (1.2-6.7); Basophils % 0.9; Eosinophils % 2.4; HCT 41.6 % (36.0-46.0); HGB 14.4 g/dL (11.2-15.7); Immature Grans % 0.3; MCH 33.6 pg (27.0-33.0); MCHC 34.6 % (32.0-36.0); MCV 97 fL (80-95); MPV 9.6 fL (8.0-11.0); Monocytes % 14.6; Neutrophils % 49.8; Platelet Count 220 10^3/uL (130-400); RBC 4.28 10^6/uL (3.93-5.22); RDW 11.5 % (11.7-14.6); RDW-SD 41.1 fL
[2023-08-09 12:21] LABS: Ferritin 155 ng/mL (8-252)
== END 2023-08-09 11:03 | disposition home or self-care (01) ==
LOC: LBO 11:03
PROVIDERS: PCP Family Medicine; Visit Provider Nurse Practitioner Family
DX: E83.110 Hereditary hemochromatosis (principal)
CPT/HCPCS: 36415; 82728; 85025

== ENCOUNTER 2023-08-12 13:06 | Outpatient (REF) | payer MEDICARE, SELFPAY ==
[2023-08-12 15:35] LABS: Potassium 3.7 mmol/L (3.5-5.1); Uric Acid 4.4 mg/dL (2.6-6.0)
== END 2023-08-12 13:07 | disposition home or self-care (01) ==
LOC: LBN 13:06
PROVIDERS: PCP Family Medicine; Visit Provider Nurse Practitioner Family
DX: E83.119 Hemochromatosis, unspecified (principal); M10.9 Gout, unspecified
CPT/HCPCS: 84132; 84550

== ENCOUNTER → 2023-08-15 04:23 | Outpatient (CLI) | payer MEDICARE, SELFPAY ==
--- NOTE | 2023-08-15 10:09 | DI.RAD_ITS ---
Exam(s) XR FOOT LT COMPLETE EXAM: XR FOOT LT COMPLETE CLINICAL HISTORY: evaluate pathology,lt foot pain, m79.672. TECHNIQUE: 2D digital imaging was performed. COMPARISON: No exams were available for comparison FINDINGS: 3 views No evidence of acute fracture nor diastasis of the Lisfranc joint. There are mild degenerative naqvi es in the great toe metatarsophalangeal joint. Other MTP joints appear unremarkable with the excepti on of the 5th toe where there is a 3 x 3 millimeter calcific density noted off the lateral aspect of the MTP joint. No erosions seen at this level. Minute whoever there headache no evidence of pes planus. No inferior calcaneal spur. Articulations of the foot otherwise appear unremarkable IMPRESSION: Mild findings as above. DATA REPOSITORY: RADIATION DOSE DELIVERED:
== END ==
PROVIDERS: PCP Family Medicine; Visit Provider Nurse Practitioner Family
DX: M79.672 Pain in left foot (principal)
CPT/HCPCS: 73630

== ENCOUNTER → 2023-11-21 10:54 | Outpatient (BNVA) | payer MEDICARE, SELFPAY | PROVIDERS: PCP Family Medicine; Visit Provider Internal Medicine Cardiovascular Disease | DX: E83.119 Hemochromatosis, unspecified (principal); I25.10 Atherosclerotic heart disease of native coronary artery without angina pectoris | CPT/HCPCS: 99213 ==

== ENCOUNTER 2024-02-01 01:47 | Outpatient (CLI) | payer MEDICARE, SELFPAY ==
[2024-02-01 11:17] LABS: Abs Immature Grans 0.01 10^3/uL (0.0-0.06); Absolute Basophil Count 0.06 10^3/uL (0.0-0.2); Absolute Eosinophil Count 0.14 10^3/uL (0.0-0.7); Absolute Lymphocyte Count 1.76 10^3/uL (1.2-3.4); Absolute Monocyte Count 0.81 10^3/uL (0.1-0.8); Absolute Neutrophil Count 2.66 10^3/uL (1.2-6.7); Basophils % 1.1 %; Eosinophils % 2.6 %; HCT 38.4 % (36.0-46.0); HGB 13.4 g/dL (11.2-15.7); Immature Grans % 0.2 %; Lymphocytes % 32.4 %; MCH 34.3 pg (27.0-33.0); MCHC 34.9 % (32.0-36.0); MCV 98 fL (80-95); MPV 9.9 fL (8.0-11.0); Monocytes % 14.9 %; Neutrophils % 48.8 %; Platelet Count 218 10^3/uL (130-400); RBC 3.91 10^6/uL (3.93-5.22); RDW 11.9 % (11.7-14.6); RDW-SD 43.2 fL; WBC 5.44 10^3/uL (4.4-10.8)
[2024-02-01 12:20] LABS: Ferritin 147 ng/mL (8-252)
== END 2024-02-01 01:48 | disposition home or self-care (01) ==
LOC: LBO 01:47
PROVIDERS: PCP Family Medicine; Visit Provider Nurse Practitioner Family
DX: E83.110 Hereditary hemochromatosis (principal)
CPT/HCPCS: 36415; 82728; 85025

== ENCOUNTER 2024-02-13 02:15 | Outpatient (CLI) | payer MEDICARE, SELFPAY ==
--- NOTE | 2024-02-14 12:35 | W.PFT ---
Date of service: 02/13/24 Time of Service: 10:00 Pulmonary Function Test Result Requesting Provider Carola Whitney Indications: Chronic cough Impression Spirometry shows normal FEV1/FVC 79%. Normal FEV1 of 111%. Normal lung volumes with no air trapping. Normal diffusion. Normal flow volume loop Clinical Correlation therefore is recommended.
== END 2024-02-13 02:16 | disposition home or self-care (01) ==
LOC: RT 02:15
PROVIDERS: PCP Family Medicine; Visit Provider Family Medicine
DX: R05.3 Chronic cough (principal)
CPT/HCPCS: 00123; 94010; 94726; 94729

== ENCOUNTER 2024-02-15 02:19 | Outpatient (CLI) | payer MEDICARE, SELFPAY ==
--- NOTE | 2024-02-15 13:02 | DI.MAMMO_ITS ---
Exam(s) MAMMO SCREENING EXAM: MAMMO SCREENING CLINICAL HISTORY: screening,z12.39 TECHNIQUE: Mammograms were interpreted according to the usual protocol including computer analysis w [employer] CAD system, tomosynthesis and C-view imaging. COMPARISON: 2013 through 2022 FINDINGS: The breasts are composed of heterogeneously dense fibroglandular densities, Breast Density category C . No suspicious masses or suspicious microcalcifications are seen. No skin thickening or abnormal axillary lymph nodes are seen. There has been no significant change from prior exams. IMPRESSION: BI-RADS Category 1, Negative mammogram. Yearly screening mammography is recommended. Breast Density Category C, heterogeneously Dense. The mammogram demonstrates the patient's breast tissue is dense. Dense breast tissue is very common a nd is not abnormal but dense breast tissue can make it harder to find cancer on a mammogram. Also, de nse breast tissue may increase breast cancer risk. This information about the result of the mammogram report was provided to the patient to raise their awareness. Use this report when you speak with the patient about their risks for breast cancer, which includes their family history. At that time, you may recommend additional screening tests (Ultrasound or MRI) as they might be useful based on their r isk. A negative radiographic report should not delay biopsy if a dominant or clinically suspicious mass is present. Up to ten percent of cancers are not identified on mammography. A negative report may reinforce clinical impression. Adenosis and dense breasts may obscure an underlying neoplasm. False positive reports average 6 to 10%.
== END 2024-02-15 02:39 ==
LOC: DI 02:19
PROVIDERS: PCP Family Medicine; Visit Provider Family Medicine
DX: Z12.31 Encounter for screening mammogram for malignant neoplasm of breast (principal)
CPT/HCPCS: 77063; 77067

== ENCOUNTER 2024-02-22 04:18 | Outpatient (CLI) | payer MEDICARE, SELFPAY ==
[2024-02-22 13:00] LABS: ALT 28 U/L (14-59); AST 21 U/L (15-37); Albumin 3.6 g/dL (3.4-5.0); Alkaline Phosphatase 53 U/L (46-116); Anion Gap 9.7 mmol/L (3-11); BUN 15 mg/dL (7-18); Bilirubin, Total 0.65 mg/dL (0.2-1.0); CO2 27.3 mmol/L (21.0-32.0); CREATININE 0.8 mg/dL (0.55-1.02); Calcium 8.5 mg/dL (8.5-10.1); Calculated LDL 77 mg/dL (<100); Chloride 106 mmol/L (98-107); Cholesterol 152 mg/dL (<200); Estimated GFR 76.79 (mL/min/1.73m2); Glucose 81 mg/dL (74-106); HDL Cholesterol 61 mg/dL (40-60); Potassium 3.8 mmol/L (3.5-5.1); Sodium 143 mmol/L (136-145); Triglyceride 70 mg/dL (<150)
== END 2024-02-22 04:19 | disposition home or self-care (01) ==
LOC: LOS 04:18
PROVIDERS: PCP Family Medicine; Visit Provider Family Medicine
DX: I10 Essential (primary) hypertension (principal)
CPT/HCPCS: 36415; 80053; 80061

== ENCOUNTER 2024-03-01 00:41 | Outpatient (CLI) | payer MEDICARE, SELFPAY ==
--- NOTE | 2024-03-01 08:30 | DI.RAD_ITS ---
Exam(s) XR CHEST 2V PA LATERAL EXAM: XR CHEST 2V PA LATERAL CLINICAL HISTORY: cough,r05.9. TECHNIQUE: 2D digital imaging was performed. COMPARISON: No exams were available for comparison FINDINGS: 2 views: Heart size is normal. The mediastinum is not widened. Lungs are clear. No infiltrates nor pleural effusions. IMPRESSION: No acute pulmonary findings. DATA REPOSITORY: RADIATION DOSE DELIVERED:
== END 2024-03-01 01:01 ==
LOC: DI 00:42
PROVIDERS: PCP Family Medicine; Visit Provider Family Medicine
DX: R05.9 Cough, unspecified (principal)
CPT/HCPCS: 71046

== ENCOUNTER 2024-06-06 02:10 | Outpatient (CLI) | payer MEDICARE, SELFPAY ==
--- NOTE | 2024-06-06 09:03 | DI.RAD_ITS ---
Exam(s) XR HIP LT COMPLETE AP PELVIS EXAM: XR HIP LT COMPLETE AP PELVIS CLINICAL HISTORY: left hip pain,m25.552. TECHNIQUE: 2D digital imaging was performed. Two views. COMPARISON: CR XR lumbar spine AP, LAT from 11/02/2018 CR XR DEXA BONE DENSITY W/WO STEWART from 11/25/2022 FINDINGS: BONES: No acute fracture is present. No bony destructive lesion is seen. JOINTS: No dislocation present. The SI joints and pubic symphysis are intact. There is mild right hip joint space narrowing. There is [id number] right periarticular spurring. The left hip joint space is maintained. There is mild periarticular spurring. Chondrocalcinosis noted in the labrum. SOFT TISSUE: Mild calcifications in the upper thigh musculature. IMPRESSION: [id number] degenerative changes of the right hip. Mild degenerative changes of the left hip. Chondrocalcinosis. DATA REPOSITORY: RADIATION DOSE DELIVERED:
--- NOTE | 2024-06-06 09:03 | DI.RAD_ITS ---
Exam(s) XR KNEE LT 3V AP,LAT,JW EXAM: XR KNEE LT 3V AP,LAT,JW CLINICAL HISTORY: left knee pain,m25.552. TECHNIQUE: 2D digital imaging was performed. Three views. COMPARISON: CR XR KNEE LT 4V AP,LAT,JW,PAT from 12/09/2019 FINDINGS: BONES: No acute fracture is present. No bony destructive lesion is seen. JOINTS: The knee is normally aligned. The joint spaces are maintained. No joint effusion is seen. Prominent chondrocalcinosis. SOFT TISSUE: Normal. IMPRESSION: Prominent chondrocalcinosis. No significant degenerative changes. DATA REPOSITORY: RADIATION DOSE DELIVERED:
== END 2024-06-06 02:30 ==
LOC: DI 02:10
PROVIDERS: PCP Family Medicine; Visit Provider Family Medicine
DX: M11.262 Other chondrocalcinosis, left knee (principal); M16.0 Bilateral primary osteoarthritis of hip
CPT/HCPCS: 73562; 73502

== ENCOUNTER 2024-08-08 03:18 | Outpatient (CLI) | payer MEDICARE, SELFPAY ==
[2024-08-08 12:19] LABS: Ferritin 86 ng/mL (8-252)
[2024-08-09 10:59] LABS: Lab Add On Test DONE
[2024-08-09 11:04] LABS: Potassium 3.4 mmol/L (3.5-5.1)
== END 2024-08-08 03:19 | disposition home or self-care (01) ==
LOC: LBO 03:18
PROVIDERS: PCP Family Medicine; Visit Provider Family Medicine
DX: E83.119 Hemochromatosis, unspecified (principal); E87.6 Hypokalemia
CPT/HCPCS: 36415; 82728; 84132

== ENCOUNTER 2024-10-31 01:48 | Outpatient (CLI) | payer MEDICARE, SELFPAY ==
[2024-11-01 09:52] LABS: HCT 41.8 % (36.0-46.0); MCH 33.7 pg (27.0-33.0); MCHC 33.5 % (32.0-36.0); MCV 101 fL (80-95); MPV 11.5 fL (8.0-11.0); Platelet Count 216 10^3/uL (130-400); RBC 4.15 10^6/uL (3.93-5.22); RDW 12.7 % (11.7-14.6); RDW-SD 47.4 fL; WBC 5.73 10^3/uL (4.4-10.8)
[2024-11-01 10:18] LABS: Anion Gap 8.1 mmol/L (3-11); BUN 20 mg/dL (7-18); CO2 27.9 mmol/L (21.0-32.0); CREATININE 0.6 mg/dL (0.55-1.02); Chloride 102 mmol/L (98-107); Estimated GFR 93.55 (mL/min/1.73m2); Ferritin 87 ng/mL (8-252); Glucose 85 mg/dL (74-106); Sodium 138 mmol/L (136-145)
[2024-11-01 13:20] LABS: Lab Add On Test DONE
[2024-11-01 13:58] LABS: Vitamin B12 590 pg/mL (193-986)
== END 2024-10-31 01:49 | disposition home or self-care (01) ==
LOC: LBO 01:49
PROVIDERS: PCP Family Medicine; Visit Provider Family Medicine
DX: E83.119 Hemochromatosis, unspecified (principal); R71.8 Other abnormality of red blood cells; I10 Essential (primary) hypertension
CPT/HCPCS: 36415; 80048; 85027; 82607; 82728

== ENCOUNTER 2024-12-19 08:54 | Outpatient (CLI) | payer MEDICARE, SELFPAY ==
--- NOTE | 2024-12-19 08:45 | RT.EKG_ITS ---
APPROVED REPORT Exam: Resting ECG Reason for Exam: cardiac evaluation Patient Location: O HR:67 bpm ECG Measurements Heart Rate 67 AXIS AL 150 P 11 QRSd 90 QRS -20 QT 388 T 26 QTc 410 Conclusion Sinus rhythm...normal P axis, V-rate 50- 99 Poor R wave progression Baseline wander in lead(s) V5
== END 2024-12-19 08:55 | disposition home or self-care (01) ==
LOC: DI.CARD 08:55
PROVIDERS: PCP Family Medicine; Visit Provider Internal Medicine Cardiovascular Disease
DX: I25.10 Atherosclerotic heart disease of native coronary artery without angina pectoris (principal); I10 Essential (primary) hypertension
CPT/HCPCS: 93010

== ENCOUNTER → 2024-12-19 11:16 | Outpatient (BNVA) | payer MEDICARE, SELFPAY | PROVIDERS: PCP Family Medicine; Visit Provider Internal Medicine Cardiovascular Disease | DX: I25.10 Atherosclerotic heart disease of native coronary artery without angina pectoris (principal); Z95.5 Presence of coronary angioplasty implant and graft; E83.119 Hemochromatosis, unspecified; I10 Essential (primary) hypertension | CPT/HCPCS: 99213; 93005 ==

== ENCOUNTER 2025-03-20 03:56 | Outpatient (CLI) | payer MEDICARE, SELFPAY ==
--- NOTE | 2025-03-20 06:45 | DI.MAMMO_ITS ---
Exam(s) MAMMO SCREENING EXAM: MAMMO SCREENING CLINICAL HISTORY: screening,Z12.39 TECHNIQUE: Mammograms were interpreted according to the usual protocol including computer analysis with CAD system, tomosynthesis and C-view imaging. COMPARISON: 2014 through 2023 FINDINGS: The breasts are composed of heterogeneously dense fibroglandular densities, Breast Density category C. No suspicious masses or suspicious microcalcifications are seen. No skin thickening or abnormal axillary lymph nodes are seen. There has been no significant change from prior exams. IMPRESSION: BI-RADS Category 1, Negative mammogram. Yearly screening mammography is recommended. Breast Density: Category C - The breasts are heterogeneously dense, which may obscure small masses. Breast density Category C or D implies that the patient has dense breast tissue. Dense breast tissue can make it harder to find cancer on a mammogram. Dense breast tissue is also associated with an increased risk of breast cancer. This information about the result of the mammogram report was provided to the patient to raise their awareness. Use this report when you speak with the patient about their risks for breast cancer, which includes their family history. At that time, you may recommend additional screening tests (Ultrasound or MRI) as these tests may add significant information. A negative radiographic report should not delay biopsy if a dominant or clinically suspicious mass is present. Up to ten percent of cancers are not identified on mammography. A negative report may reinforce clinical impression. Adenosis and dense breasts may obscure an underlying neoplasm. False positive reports average 6 to 10%.
== END 2025-03-20 04:16 ==
LOC: DI 03:56
PROVIDERS: PCP Family Medicine; Visit Provider Family Medicine
DX: Z12.31 Encounter for screening mammogram for malignant neoplasm of breast (principal); R92.323 Mammographic fibroglandular density, bilateral breasts
CPT/HCPCS: 77063; 77067

== ENCOUNTER 2025-03-20 04:17 | Outpatient (CLI) | payer MEDICARE, SELFPAY ==
[2025-03-20 11:14] LABS: Abs Immature Grans 0.01 10^3/uL (0.0-0.06); HCT 39.4 % (36.0-46.0); HGB 13.7 g/dL (11.2-15.7); Immature Grans % 0.2 %; MCH 33.3 pg (27.0-33.0); MCHC 34.8 % (32.0-36.0); MCV 96 fL (80-95); MPV 10.0 fL (8.0-11.0); Platelet Count 185 10^3/uL (130-400); RBC 4.11 10^6/uL (3.93-5.22); RDW 12.1 % (11.7-14.6); RDW-SD 42.0 fL; WBC 5.05 10^3/uL (4.4-10.8)
[2025-03-20 12:13] LABS: Anion Gap 10.5 mmol/L (3-11); BUN 18 mg/dL (7-18); CO2 26.5 mmol/L (21.0-32.0); Calcium 8.5 mg/dL (8.5-10.1); Chloride 104 mmol/L (98-107); Estimated GFR 97.14 (mL/min/1.73m2); Ferritin 137 ng/mL (8-252); Glucose 94 mg/dL (74-106); Potassium 4.0 mmol/L (3.5-5.1); Sodium 141 mmol/L (136-145)
[2025-03-20 19:17] LABS: Hepatitis C Ab w Rflx HCV PCR Negative (Negative)
== END 2025-03-20 04:18 | disposition home or self-care (01) ==
LOC: LBO 04:18
PROVIDERS: PCP Family Medicine; Visit Provider Family Medicine
DX: Z11.59 Encounter for screening for other viral diseases (principal); E83.119 Hemochromatosis, unspecified; I10 Essential (primary) hypertension
CPT/HCPCS: 36415; 80048; 86803; 82728; 85025

== ENCOUNTER 2025-05-08 02:13 | Outpatient (CLI) | payer MEDICARE, SELFPAY ==
[2025-05-08 10:21] LABS: Abs Immature Grans 0.01 10^3/uL (0.0-0.06); HCT 38.3 % (36.0-46.0); HGB 13.0 g/dL (11.2-15.7); Immature Grans % 0.2 %; MCH 32.9 pg (27.0-33.0); MCHC 33.9 % (32.0-36.0); MCV 97 fL (80-95); MPV 10.1 fL (8.0-11.0); Platelet Count 185 10^3/uL (130-400); RBC 3.95 10^6/uL (3.93-5.22); RDW 13.1 % (11.7-14.6); RDW-SD 46.6 fL; WBC 4.62 10^3/uL (4.4-10.8)
[2025-05-08 10:40] LABS: ALT 23 U/L (10-49); AST 26 U/L (<34); Albumin 4.3 g/dL (3.4-5.0); Alkaline Phosphatase 59 U/L (46-116); Anion Gap 8.3 mmol/L (3-11); BUN 17 mg/dL (9-23); Bilirubin, Total 0.60 mg/dL (0.2-1.2); CO2 27.7 mmol/L (20.0-31.0); Calcium 8.6 mg/dL (8.3-10.6); Chloride 105 mmol/L (98-107); Glucose 74 mg/dL (74-106); Potassium 3.8 mmol/L (3.5-5.1); Sodium 141 mmol/L (136-145); Total Protein 6.8 g/dL (5.7-8.2)
[2025-05-08 10:43] LABS: Ferritin 46 ng/mL (7-271)
== END 2025-05-08 02:14 | disposition home or self-care (01) ==
PROVIDERS: PCP Family Medicine; Visit Provider Nurse Practitioner Adult Health
DX: E83.10 Disorder of iron metabolism, unspecified (principal)
CPT/HCPCS: 36415; 80053; 82728; 85025

== ENCOUNTER → 2025-05-12 13:36 | Outpatient (BNVA) | payer MEDICARE, SELFPAY | PROVIDERS: PCP Family Medicine; Referring Provider Family Medicine; Visit Provider Student in an Organized Health Care Education/Training Program | DX: M65.331 Trigger finger, right middle finger (principal); M65.341 Trigger finger, right ring finger | CPT/HCPCS: 99214 ==